=== PATIENT | female | born 1955 | race Caucasian/White ===

== ENCOUNTER 2018-10-20 05:50 | Emergency (ER) | END 2018-10-20 07:11 | disposition home or self-care (01) ==

== ENCOUNTER 2019-07-23 13:41 | Emergency (ER) | payer BC, OTHER ==
[~2019-07-23] VITALS: Ht 154.9 cm; Wt 56.0 kg
[~2019-07-23 13:41] MED LIST: CYCL10TA7 PO; ELIM TOP; HYDR-762 PO; IBUP-1542 PO; IBUP800T48 PO
[2019-07-23 13:45] VITALS: BP 132/57; PULSE 89; RESP 18; Ht 154.9 cm; Wt 56.0 kg
[2019-07-23] MEDS ORDERED: IBUPROFEN 600 MG TAB PO ONE (15:00)
[2019-07-23] MEDS ORDERED: DEXAMETHASONE 10 MG/ML 1 ML INJ IM ONE (15:00)
== END 2019-07-23 15:59 | disposition home or self-care (01) ==
LOC: FTE 13:41
DX: B85.0 Pediculosis due to Pediculus humanus capitis (principal); I10 Essential (primary) hypertension; G89.4 Chronic pain syndrome; Z59.0 Homelessness
CPT/HCPCS: 96372; 99284; J1100